=== PATIENT | male | born 1990 | race Caucasian/White ===

== ENCOUNTER 2024-02-24 10:04 | Emergency (ER) | payer OTHER, SELFPAY ==
[2024-02-24 10:05] VITALS: BP 167/118; PULSE 74; RESP 14; TEMP 36.6; O2SAT 100
--- NOTE | 2024-02-24 10:15 | EDS_ITS ---
HPI History of Present Illness Chief Complaint: Upper Extremity Injury Detail of Chief Complaint: Left elbow injury Informant: patient Narrative Narrative: Patient presents the emergency department with complaint of injury to his left elbow. Patient states that he was standing on the back of a pickup truck when he fell forward and tried to catch himself with his arms. Patient thinks he felt a snap in his left arm at the elbow. Has a hard time moving his arm. Denies any other injuries. Patient [id number]. No medical history. PFSH PFSH Home Medications hydrocodone-acetaminophen 5-325mg 5mg-325mg 1 tab PO Q4H PRN PRN Pain 2 days #15 TABLETS 02/24/24 [Rx Last Taken Unknown] Allergy/AdvReac Type Severity Reaction Status Date / Time No Known Allergies Allergy Verified 02/24/24 10:05 Social History Smoking Status: Never smoker ROS ROS ED Review of Systems ROS Unobtainable: other Constitutional Constitutional ED: Reports lethargy; Denies chills, fever(s), sweats or weight loss Eyes Eyes: Denies blurry vision, change in vision or diplopia ENT ENT ED: Denies rhinorrhea or sore throat Cardiovascular Cardiovascular: Denies chest pain, orthopnea or racing heartbeat Respiratory/Chest Respiratory/Chest: Denies cough, dyspnea, dyspnea on exertion, orthopnea or sputum Gastrointestinal Gastrointestinal: Denies abdominal pain, diarrhea, nausea or vomiting Genitourinary Genitourinary ED: Denies dysuria, hematuria or urinary frequency Musculoskeletal Musculoskeletal: Reports other Details: Left elbow injury/pain ; Denies arthralgias, back pain, myalgias or neck pain Integumentary Denies abscess, Abrasions or rash Neurologic Neurologic: Denies headache(s) or weakness Psychiatric Psychiatric: Denies anxiety, depression or suicidal thoughts Endocrine Endocrinology: Denies polydipsia, polyphagia or polyuria Hematologic/Lymphatic Hematologic/Lymphatic: Denies easy bleeding, easy bruising or lymphadenopathy Allergic/Immunologic Allergic/Immunologic ED: Denies mouth swelling, tongue swelling or urticaria EXAM Physical Exam Const Vital Signs: 02/24/24 10:05 Temperature 98 F Temperature Source Temporal Pulse Rate 74 Respiratory Rate 14 Blood Pressure 167/118 H Blood Pressure Mean 134 Pulse Ox 100 Oxygen Delivery Method Room Air Positive well nourished and well developed General Appearance ED: well developed and NAD HEENT Reports TM's clear and moist mucous membranes normocephalic and atraumatic; Negative for trauma or tenderness Tympanic Membrane ED: Yes TM's clear Eyes PERRL and EOMs intact bilaterally General Eye ED: Negative for pale conjunctiva or scleral icterus Neck no lymphadenopathy, supple and no JVD General: Negative for tenderness Chest Wall inspection of chest normal and palpation of chest normal Chest: Negative for tenderness Resp normal respiratory effort and clear to auscultation bilaterally Effort and Inspection: Negative for respiratory distress or pain with movement Auscultation: Negative for rhonchi, wheezes or diminished lung sounds Cardio regular rate, regular rhythm, S1 normal heart sound, S2 normal heart sound and no murmurs Peripheral Pulses: pulses 2+ throughout GI normal to inspection, nondistended, normoactive bowel sounds, soft to palpation, non-tender, non-distended and no masses Back/Spine no CVA tenderness and no thoracic nor lumbar tenderness Extremity normal to inspection Extremity Narrative: Left upper extremity-patient holds the arm flexed at the elbow. No obvious deformity. Decreased range of motion in flexion extension secondary to pain. 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 Neurovascularly intact with normal sensation and normal pulses distally. No broken skin about the elbow noted. There is no significant soft tissue swelling or ecchymosis or bruising. General Extremety ED: Negative for edema General Extremity: Negative for edema Neuro oriented x3, CN's II-XII intact bilaterally, no sensory deficits noted and gait normal Sensorium / Orientation: awake, alert, oriented to person, oriented to place and oriented to time Motor Exam: strength 5/5 throughout and strength abnormal Psych mental status grossly normal Skin no rashes or lesions noted and no wounds MDM MDM MDM Narrative Medical decision making narrative: Patient presents with injury to the left elbow when he fell out of a pickup truck. Patient [id number]. X-rays of the elbow and forearm obtained. Noted to have a nondisplaced radial head fracture. Patient was medicated initially with morphine and Zofran IM. He will be given a sling. Given referral to orthopedics for follow-up. Given a prescription for [facility] for pain. Advised ice and elevate the extremity. Radiography Diagnostic Testing: Three-view x-rays of the left elbow obtained interpreted by myself as nondisplaced radial head fracture. Radiology in agreement. 2 view x-rays of the left forearm obtained showed a distal radius fracture. Radiology in agreement. Discharge Plan Triage Chief Complaint: Upper Extremity Injury ED Provider: Shree Lockwood Dx/Rx/DC Orders Clinical Impression: Closed fracture of head of left radius Instructions: ED Elbow Fracture Prescriptions: New hydrocodone-acetaminophen [hydrocodone-acetaminophen] 5-325 mg tablet 1 tab PO Q4H PRN PRN (Reason: Pain) 2 Days Qty: 15 0RF Referrals: Lukasz Patricia MD [Med Staff - Active Staff] - 3-5 Days Disposition Disposition: Home, Self Care
[2024-02-24 10:18] VITALS: BMI 29.2
--- NOTE | 2024-02-24 10:30 | RAD_ITS ---
STUDY: X-RAY - LEFT ELBOW REASON FOR EXAM: Male, 33 years old. Pain after trauma TECHNIQUE: 4 view(s) of the elbow. COMPARISON: None. FINDINGS: Normal visualized humerus, radius and ulna. Normal radiocapitellar and ulnotrochlear articulations. The soft tissue structures are unremarkable. RAD/Elbow min 3 Views IMPRESSION: Normal x-ray examination of the elbow. Electronically Signed: J Carlos Mccain MD at 11:05 EDT ,
--- NOTE | 2024-02-24 10:30 | RAD_ITS ---
STUDY: X-RAY - LEFT RADIUS AND ULNA REASON FOR EXAM: Male, 33 years old. injury TECHNIQUE: 2 view(s) of the forearm. COMPARISON: None. FINDINGS: Again identified is fracture lucency in the radial head with associated soft tissue swelling. No demonstrated fracture in the mid or distal radius. There is no demonstrated ulnar fracture or fracture in the visualized distal humerus. RAD/Forearm 2 Views IMPRESSION: Acute nondisplaced radial head fracture with soft tissue swelling Electronically Signed: J Carlos Mccain MD at 11:09 EDT ,
[2024-02-24] MEDS: Morphine 4 MG/ML Syringe IM (10:44)
[2024-02-24] MEDS: Ondansetron 4 MG/2 ML Vial IM (10:45)
[2024-02-24 11:12] VITALS: BP 113/89; O2SAT 99
[2024-02-24 11:20] VITALS: BP 111/78; PULSE 67; RESP 16; O2SAT 100
== END 2024-02-24 11:35 | disposition home or self-care (01) ==
LOC: ED 11:31
PROVIDERS: Emergency Provider Emergency Medicine; PCP Physician Assistant; Visit Provider Emergency Medicine
DX: S52.125A Nondisplaced fracture of head of left radius, initial encounter for closed fracture (principal); W19.XXXA Unspecified fall, initial encounter
CPT/HCPCS: 73080; 73090; 96372; 99284; J2405